=== PATIENT | female | born 1980 | race African-American/Black ===

== ENCOUNTER 2025-01-25 16:21 | Emergency (ER) | payer OTHER ==
[~2025-01-25] VITALS: Ht 165.1 cm; Wt 75.0 kg
[2025-01-25 16:29] VITALS: BP 145/85; PULSE 102; RESP 16; TEMP 36.7; O2SAT 100; O2SAT 99
[2025-01-25 18:12] LABS: BASOPHILS % 0.6 % (0.0-2.0); EOSINOPHILS % 1.9 % (0.0-5.0); HEMATOCRIT. 40.1 % (36.0-48.0); HEMOGLOBIN. 13.1 g/dL (12.0-16.0); LYMPHOCYTES % 23.7 % (20.0-50.0); MEAN PLATELET VOLUME 8.6 fl (7.4-10.4); MONOCYTES % 5.9 % (2.0-8.0); NEUTROPHILS % 67.9 % (40.0-76.0); PLATELET 267 x1000/uL (130-400); RED BLOOD CELL COUNT 4.65 mill/uL (4.2-5.4); RED CELL DISTRIBUTION WIDTH 14.4 % (11.6-14.6)
[2025-01-25 18:29] LABS: CREATININE 0.8 mg/dL (0.6-1.0)
[2025-01-25 18:30] LABS: UREA NITROGEN BLOOD 12 mg/dL (9-23)
[2025-01-25 18:31] LABS: INR 0.9
[2025-01-25 18:34] LABS: TROPONIN I HIGH SENSITIVITY < 4 ng/L (3.0-34)
[2025-01-25 18:37] LABS: HCG SCREEN NEGATIVE
[2025-01-25 20:11] LABS: TROPONIN I HIGH SENSITIVITY < 4 ng/L (3.0-34)
== END 2025-01-25 20:30 | disposition home or self-care (01) ==
LOC: ER 16:21
DX: R07.9 Chest pain, unspecified (principal); E11.9 Type 2 diabetes mellitus without complications; Z79.899 Other long term (current) drug therapy; Z98.890 Other specified postprocedural states
CPT/HCPCS: 36415; 71045; 80048; 84484; 84703; 85025; 85379; 93005; 99285